=== PATIENT | female | born 1970 | race Caucasian/White ===

== ENCOUNTER → 2019-11-27 | Outpatient (CLI) | payer OTHER, SELFPAY | PROVIDERS: Family Provider Family Medicine; Visit Provider Podiatrist Foot & Ankle Surgery | DX: M76.829 Posterior tibial tendinitis, unspecified leg (principal) | CPT/HCPCS: L3030 ==

== ENCOUNTER → 2019-12-30 15:49 | Outpatient (BNVA) | payer OTHER, SELFPAY | PROVIDERS: Family Provider Family Medicine; PCP Obstetrics & Gynecology; Visit Provider Nurse Practitioner | DX: J03.80 Acute tonsillitis due to other specified organisms (principal); B96.89 Other specified bacterial agents as the cause of diseases classified elsewhere; Z20.828 Contact with and (suspected) exposure to other viral communicable diseases | CPT/HCPCS: 87081; 87880 ==

== ENCOUNTER 2020-01-09 05:46 | Day surgery (SDC) | payer OTHER, SELFPAY ==
[2020-01-05 11:18] VITALS: BMI 35.2
--- NOTE | 2020-01-05 11:26 | ECG_ITS ---
Measurements Intervals [place] Rate: 64 P: 39 NM: 155 QRS: 37 QRSD: 90 T: 24 QT: 383 QTc: 397 SINUS RHYTHM No previous ECG available for comparison Electronically Signed On 01-05-2020 22:18:59 ENVIRONMENTAL REMEDIATION SPECIALIST by Julian Khan M.D. [email or web address]
[2020-01-05 11:54] LABS: Basophils # 0.1 10^3/uL (0.0-0.1); Basophils % 1.1 %; Eosinophils # 0.2 10^3/uL (0.0-0.8); Hematocrit 42.3 % (37.0-47.0); Hemoglobin 13.9 g/dL (11.5-15.3); Lymphocytes # 2.8 10^3/uL (0.8-4.8); Lymphocytes % 26.8 %; Mean Corpuscular HGB Conc 32.9 g/dL (30.0-36.0); Mean Corpuscular Volume 88.1 fL (81-99); Mean Platelet Volume 10.2 fL (7.4-10.4); Monocytes # 0.8 10^3/uL (0.2-0.9); Monocytes % 7.4 %; Neutrophils # 6.5 10^3/uL (1.8-7.7); Neutrophils % 62.2 %; Nucleated Red Blood Cells % 0 %; Platelet Count 348 10^3/cmm (130-400); Red Cell Distribution Width 12.6 % (12.1-15.1); White Blood Count 10.4 10^3/uL (4.0-10.0)
--- NOTE | 2020-01-05 11:54 | ANES.PREANE2 ---
Pre-Anesthetic Assessment Pre-Anesthetic Assessment: Height/Weight: Height 1.7 m Weight 102.058 kg Preop Diagnosis: Intermenstrual bleeding Proposed Procedure: Operation Date: 01/09/20 07:00 Proposed Procedures p Hysteroscopy [id number] N92.3(Not Applicable) - Jose Molina MD s Dilation And Curettage (D&C) paracervical block(Not Applicable) - Jose Molina MD Exam: Pre-Anes Outpt Exam: alert, oriented x 3, clear to auscultation bilaterally and regular rate & rhythm Airway: Submandibular: WNL Cervical ROM: WNL MP: 1 Pulmonary: Pulmonary: Asthma Comments: last required inhaler 2 weeks ago CV/HEM: CV/HEM: HTN Comments: rx'd x 2y : Comments: stones in her 30's GI: GI: GERD Neuropsych: Neuropsych: [place] Comments: hx migranes, last 3 months ago Anesthetic Plan: ASA status: 2 Anesthesia: General PFSH Anesthesia PFSH: Medical History (Updated 01/05/20 @ 11:17 by Salome Truong) Contraception management (Acute) History of kidney stones (Acute) Migraine headache without aura (Acute) Obesity (Acute) Family History (Updated 12/26/19 @ 19:52 by Jose Molina MD) Mother Thyroid disease Hypercholesteremia Hypertension Diabetes Stroke Father Hypercholesteremia Diabetes CAD (coronary artery disease) Social History (Updated 12/30/19 @ 15:50 by Fadumo Cole LPN) Smoking and tobacco status: never smoked Alcohol intake: current Alcohol intake frequency: holidays/special occasions only Female Reproductive History: Date of last menstrual period: 12/20/19 Data Anesthesia Cardiac Studies: No Data to Display
[2020-01-09 06:00] VITALS: BP 128/75; PULSE 71; RESP 18; TEMP 36.7; O2SAT 98
[2020-01-09] MEDS: ketorolac 30 mg/mL INJ IVP (06:22)
[2020-01-09] MEDS: sodium chloride 0.9% 1,000 ML 30 ML IV (06:22)
[2020-01-09 06:30] LABS: OR HCG Qualitative Urine Negative (Negative)
--- NOTE | 2020-01-09 06:37 | PM.HPUD ---
H&P update H&P Update: DATE OF SURGERY/PROCEDURE: 01/09/20 DATE H&P PERFORMED: 12/22/19 H&P UPDATE INFORMATION: H&P completed within last 30 days, No changes to prior documentation and H&P is in [facility] EMR on date indicated PREOP DIAGNOSIS: Intermenstrual bleeding PLANNED PROCEDURE: Operation Date: 01/09/20 07:00 Proposed Procedures p Hysteroscopy [id number] N92.3(Not Applicable) - Jose Molina MD s Dilation And Curettage (D&C) paracervical block(Not Applicable) - Jose Molina MD Full H&P Medications/Allergies: Current Medications: Current Medications Generic Name Dose Route Start Last Admin Trade Name Freq PRN Reason Stop Dose Admin Sodium Chloride 1,000 mls @ 30 ml s/hr 01/09/20 06:00 01/09/20 06:22 Sodium Chloride 0.9% IV 01/10/20 05:59 30 mls/hr .Q24H JESSE Administration Perinent History: Medical/Surgical History: Medical History (Updated 12/30/19 @ 16:30 by MARY Carlson) Contraception management (Acute) History of kidney stones (Acute) Migraine headache without aura (Acute) Obesity (Acute) Family History: Family History (Updated 12/26/19 @ 19:52 by Jose Molina MD) Mother Thyroid disease Hypercholesteremia Hypertension Diabetes Stroke Father Hypercholesteremia Diabetes CAD (coronary artery disease) Social History: Social History Smoking and tobacco status: never smoked Alcohol intake: current Alcohol intake frequency: holidays/special occasions only
--- NOTE | 2020-01-09 07:32 | P.OP_ITS ---
Operative Report Date of procedure: January 09, 2020 Pre-op Diagnosis: Intermenstrual bleeding Post-op Diagnosis: Intermenstrual bleeding Procedure Done: Hysteroscopy with D&C, Paracervical block Specimens removed/disposition: Endometrial curettings Surgeon: Jose Molina Anesthesia: MAC and Other (Paracervical block) Estimated blood loss (mL): 5 IV fluids (mL): 600 Complications: None Brief History: Patient is a 49-year-old white female 3, para 2-0-1-2 with an LMP of 12/19/2019 who is currently on OCPs for control. She had initially presented to [facility] for evaluation due to intermenstrual bleeding on OCPs. She had had a similar problem years ago and was treated with D&C which corrected the problem. Current intermenstrual bleeding started approximately April 2019. It starts approximately 1 to 1-1/2 weeks prior to the onset of the period. Exam in the office had not revealed any potential cause for the bleeding. Hysteroscopy was recommended to evaluate for possible polyps as a cause for her bleeding. Questions were answered and she wished to proceed with hysteroscopy with D&C under sedation. Procedure: The patient was taken to the operating room where IV sedation was started. She was prepped and draped in the usual sterile fashion in the dorsal supine position with legs in John style stirrups. Sequential compression boots had been placed prior to starting the case. Patient had voided just before coming to the operating room. Exam under anesthesia was performed and the patient was noted to have second- degree uterine prolapse and a second- third degree cystocele. Uterus was slightly retroflexed. A weighted speculum was placed in the vagina and the cervix was grasped with a single-tooth tenaculum. A paracervical block was performed with a total of 12 mL of 2% lidocaine with epinephrine used. The cervix was serially dilated until a operative hysteroscope could be passed. Crystalloid solution was used as a distention media. The endometrial cavity was inspected and appeared normal. No polyps or submucosal fibroids noted. Sharp curettage was performed until there was a gritty texture throughout the endometrial cavity. The tenaculum was removed and there was minimal bleeding from the tenaculum site. Patient tolerated the procedure well. Sponge and needle counts were correct. DRAINS: None FINDINGS: Second-degree uterine prolapse with a second to third-degree cystocele. Normal-appearing endometrial cavity with no polyps or submucosal f ibroids noted. POSTOPERATIVE STATUS: The patient was transferred to the recovery room in satisfactory condition DISPOSITION: Discharge to home when criteria was met. FOLLOWUP APPOINTMENT: Followup appointment had been scheduled on 01/29/2020 in my office. MEDICATIONS: Prescriptions for: Tramadol 50 mg, 1 to 2 tablets every 6 hours as needed for pain, #10, 0 refills Resume usual home medications.
[2020-01-09 07:37] VITALS: BP 129/72; PULSE 75; RESP 18; TEMP 36.6; O2SAT 97
[2020-01-09 08:07] VITALS: BP 101/48; PULSE 67; RESP 18; TEMP 36.6; O2SAT 97
== END 2020-01-09 08:25 | disposition home or self-care (01) ==
PROVIDERS: Family Provider Family Medicine; PCP Obstetrics & Gynecology; Visit Provider Obstetrics & Gynecology
PROC: 0UJD8ZZ Inspection of Uterus and Cervix, Via Natural or Artificial Opening Endoscopic (ICD-10-PCS; CPT 58555; principal; 2020-01-09 07:00)
PROC: (CPT 58120; 2020-01-09 07:00)
DX: N92.3 Ovulation bleeding (principal); E66.9 Obesity, unspecified; Z68.35 Body mass index [BMI] 35.0-35.9, adult; Z82.49 Family history of ischemic heart disease and other diseases of the circulatory system; Z83.3 Family history of diabetes mellitus
CPT/HCPCS: 58558; 12345; 84703; 85025; 88305; 93005; 96374; J1885; J2001; J2405; J2704; J3010; J7030

== ENCOUNTER → 2020-01-29 08:26 | Outpatient (BNVA) | payer OTHER, SELFPAY | PROVIDERS: Family Provider Family Medicine; PCP Obstetrics & Gynecology; Visit Provider Obstetrics & Gynecology | DX: R30.0 Dysuria (principal); N92.3 Ovulation bleeding; Z48.816 Encounter for surgical aftercare following surgery on the genitourinary system | CPT/HCPCS: 81003; 87086 ==

== ENCOUNTER → 2020-02-23 15:44 | Outpatient (BNVA) | payer OTHER, SELFPAY | PROVIDERS: Family Provider Family Medicine; PCP Obstetrics & Gynecology; Visit Provider Nurse Practitioner Women's Health | DX: R35.0 Frequency of micturition (principal); N76.0 Acute vaginitis; B96.89 Other specified bacterial agents as the cause of diseases classified elsewhere | CPT/HCPCS: 80053; 81000; 87210 ==

== ENCOUNTER → 2020-03-20 14:56 | Outpatient (BNVA) | payer OTHER, SELFPAY | PROVIDERS: Family Provider Family Medicine; PCP Obstetrics & Gynecology; Visit Provider Obstetrics & Gynecology | DX: R35.0 Frequency of micturition (principal) | CPT/HCPCS: 81000 ==

== ENCOUNTER → 2020-03-21 10:33 | Outpatient (BNVA) | payer OTHER, SELFPAY | PROVIDERS: Family Provider Family Medicine; PCP Obstetrics & Gynecology; Visit Provider Podiatrist Foot & Ankle Surgery | DX: M21.42 Flat foot [pes planus] (acquired), left foot (principal); M76.822 Posterior tibial tendinitis, left leg | CPT/HCPCS: 73630 ==

== ENCOUNTER → 2020-03-25 15:09 | Outpatient (BNVA) | payer OTHER, SELFPAY | PROVIDERS: Family Provider Family Medicine; PCP Obstetrics & Gynecology; Visit Provider Obstetrics & Gynecology | DX: R35.0 Frequency of micturition (principal) | CPT/HCPCS: 80053 ==

== ENCOUNTER → 2020-06-06 11:50 | Outpatient (BNVA) | payer OTHER, SELFPAY | PROVIDERS: Family Provider Family Medicine; PCP Obstetrics & Gynecology; Referring Provider Family Medicine; Visit Provider Nurse Practitioner Family | DX: N39.0 Urinary tract infection, site not specified (principal); R35.0 Frequency of micturition | CPT/HCPCS: 80053; 81001 ==

== ENCOUNTER → 2020-07-10 15:44 | Outpatient (BNVA) | payer OTHER, SELFPAY | PROVIDERS: Family Provider Family Medicine; PCP Obstetrics & Gynecology; Visit Provider Nurse Practitioner Women's Health | DX: Z30.430 Encounter for insertion of intrauterine contraceptive device (principal); N94.5 Secondary dysmenorrhea; Z86.19 Personal history of other infectious and parasitic diseases; Z30.9 Encounter for contraceptive management, unspecified | CPT/HCPCS: 81025 ==

== ENCOUNTER 2020-07-29 09:25 | Outpatient (CLI) | payer OTHER, SELFPAY ==
--- NOTE | 2020-07-29 08:30 | XRR_ITS ---
PROCEDURE INFORMATION: Exam: XR Abdomen, 1 View Exam date and time: 07/29/2020 9:39 AM Age: 50 years old Clinical indication: Condition or disease; Other: Stones; Prior surgery; Surgery type: Gb TECHNIQUE: Imaging protocol: XR of the abdomen. Views: Frontal supine view of the abdomen. 1 View. COMPARISON: ES surgery / GI images 01/09/2020 4:40 AM FINDINGS: Gastrointestinal tract: Bowel gas pattern is nonspecific. No mass effect upon the bowel loops. Distal rectal gas. Scattered loops of air filled small bowel none of which are dilated. Organs: intrauterine device . Surgical clips are present in the region of the gallbladder fossa. Bones/joints: No acute process within the osseous structures of the spine or pelvis. Soft tissues: No appreciable calcifications XR/XR KUB [id number] IMPRESSION: Bowel gas pattern is nonspecific.
== END 2020-07-29 09:26 | disposition home or self-care (01) ==
LOC: RAD 09:28
PROVIDERS: PCP Family Medicine; Visit Provider Urology
DX: N20.9 Urinary calculus, unspecified (principal)
CPT/HCPCS: 74018; 81001

== ENCOUNTER 2020-08-21 07:28 | Outpatient (CLI) | payer OTHER, SELFPAY ==
--- NOTE | 2020-08-21 07:30 | XRR_ITS ---
PROCEDURE INFORMATION: Exam: XR Abdomen, 1 View Exam date and time: 08/21/2020 7:32 AM Age: 50 years old Clinical indication: Right flank pain; Prior surgery; Surgery type: Gb TECHNIQUE: Imaging protocol: XR of the abdomen. Views: Frontal supine view of the abdomen. 1 View. COMPARISON: CR XR KUB [id number] 07/29/2020 9:33 AM FINDINGS: Gastrointestinal tract: No dilated gas-filled loops of bowel. Organs: There is an intrauterine device present. No radiopaque renal or ureteral calculi. Vasculature: Multiple phleboliths in the pelvis bilaterally. Bones/joints: No acute osseous abnormality. XR/XR KUB [id number] IMPRESSION: No acute abnormality.
== END 2020-08-21 07:29 | disposition home or self-care (01) ==
LOC: RAD 07:31
PROVIDERS: PCP Family Medicine; Visit Provider Urology
DX: R10.9 Unspecified abdominal pain (principal)
CPT/HCPCS: 74018; 81001

== ENCOUNTER → 2020-10-21 12:04 | Outpatient (BNVA) | payer OTHER, SELFPAY | PROVIDERS: Visit Provider Family Medicine | DX: Z20.828 Contact with and (suspected) exposure to other viral communicable diseases (principal) | CPT/HCPCS: 87635 ==

== ENCOUNTER → 2020-11-20 08:31 | Outpatient (BNVA) | payer OTHER, SELFPAY | PROVIDERS: PCP Family Medicine; Visit Provider Urology | DX: N39.0 Urinary tract infection, site not specified (principal); N20.1 Calculus of ureter; R39.198 Other difficulties with micturition | CPT/HCPCS: 81003; 87077; 87086; 87184 ==

== ENCOUNTER → 2021-03-03 09:37 | Outpatient (BNVA) | payer OTHER, SELFPAY | PROVIDERS: PCP Family Medicine; Visit Provider Urology | DX: N39.0 Urinary tract infection, site not specified (principal); R39.11 Hesitancy of micturition | CPT/HCPCS: 81003 ==

== ENCOUNTER → 2021-05-27 17:58 | Outpatient (BNVA) | payer OTHER, SELFPAY | PROVIDERS: PCP Family Medicine; Visit Provider Registered Nurse Neonatal Intensive Care | DX: S99.911A Unspecified injury of right ankle, initial encounter (principal); W17.2XXA Fall into hole, initial encounter | CPT/HCPCS: 73610 ==

== ENCOUNTER → 2021-06-18 09:40 | Outpatient (BNVA) | payer OTHER, SELFPAY | PROVIDERS: PCP Family Medicine; Visit Provider Urology | DX: N30.80 Other cystitis without hematuria (principal) | CPT/HCPCS: 81003; 87077; 87086; 87184 ==

== ENCOUNTER 2021-07-01 08:26 | Outpatient (CLI) | payer OTHER, SELFPAY ==
--- NOTE | 2021-07-01 08:30 | MM_ITS ---
WS: [id number] Bilateral screening digital mammogram, 07/01/2021 Clinical Data: SCREENING Comparison: 09/18/2019, 04/27/2018, 04/13/2016, 04/05/2015, 05/04/2013. Findings: The breast parenchymal pattern shows fibroglandular tissue No spiculated masses or clustered calcific ations are seen. There are no secondary signs of carcinoma. MM/[place] [id number] Impression: 1. Negative bilateral mammogram unchanged. 2. Recommend annual screening mammograms. BIRADS: 1-Negative FOLLOW UP: 1 Year Follow-up The CAD load checker was used.
== END 2021-07-01 08:27 | disposition home or self-care (01) ==
LOC: RADSHAW 08:29
PROVIDERS: PCP Family Medicine; Visit Provider Nurse Practitioner Women's Health
DX: Z12.31 Encounter for screening mammogram for malignant neoplasm of breast (principal)
CPT/HCPCS: 77067

== ENCOUNTER → 2021-07-03 09:09 | Outpatient (BNVA) | payer OTHER, SELFPAY | PROVIDERS: PCP Family Medicine; Visit Provider Nurse Practitioner Family | DX: N39.0 Urinary tract infection, site not specified (principal) | CPT/HCPCS: 81003 ==

== ENCOUNTER → 2021-08-06 14:02 | Outpatient (BNVA) | payer OTHER, SELFPAY | PROVIDERS: PCP Family Medicine; Visit Provider Urology | DX: N39.0 Urinary tract infection, site not specified (principal) | CPT/HCPCS: 81003; 87077; 87086; 87184 ==

== ENCOUNTER → 2022-01-08 13:57 | Outpatient (BNVA) | payer OTHER, SELFPAY | PROVIDERS: PCP Family Medicine; Visit Provider Urology | DX: N30.20 Other chronic cystitis without hematuria (principal) | CPT/HCPCS: 81003 ==

== ENCOUNTER → 2022-04-21 14:05 | Outpatient (BNVA) | payer BC, SELFPAY | PROVIDERS: PCP Family Medicine; Visit Provider Podiatrist Foot & Ankle Surgery | DX: M79.672 Pain in left foot (principal); R35.0 Frequency of micturition; N30.20 Other chronic cystitis without hematuria | CPT/HCPCS: 73630; 85651; 86140; 86160; 86162; 86235; 86255; 86376; 86431 ==

== ENCOUNTER 2022-07-24 05:49 | Day surgery (SDC) | payer BC, SELFPAY ==
[2022-07-23 12:07] VITALS: BMI 41.3
--- NOTE | 2022-07-24 06:12 | W.PM.OPSUD ---
Surgery/Procedure H&P Update DATE OF PROCEDURE: July 24, 2022 DATE H&P PERFORMED: 07/22/22 H&P UPDATE INFORMATION: I have reviewed H&P completed within last 30 days, I have examined patient prior to procedure and No changes to prior documentation PREOP DIAGNOSIS: Acid reflux and screening colonoscopy PRIMARY INDICATION FOR PROCEDURE: The same PLANNED PROCEDURE: Operation Date: 07/24/22 07:00 Proposed Procedures p EGD and colonoscopy [id number].K21.9,Z12.11(Not Applicable) - Jan Welch MD s Colonoscopy(Not Applicable) - Jan Welch MD
[2022-07-24 06:16] VITALS: BP 129/91; PULSE 91; RESP 18; TEMP 36.1; O2SAT 97
[2022-07-24] MEDS: sodium chloride 0.9% 1,000 ML 30 ML IV (06:28)
[2022-07-24 06:32] LABS: OR HCG Qualitative Urine Negative (Negative)
[2022-07-24 07:24] VITALS: BP 114/69; PULSE 97; RESP 16; TEMP 36.8; O2SAT 94
[2022-07-24 07:29] VITALS: BP 107/75; PULSE 93; RESP 18; O2SAT 94
--- NOTE | 2022-07-24 07:32 | ANES.PREANE2 ---
Pre-Anesthetic Assessment Height/Weight: Height 1.7 m Weight 119.748 kg Temp Pulse Resp BP Pulse Ox O2 Del Method 98.2 F 97 16 114/69 94 07/24/22 07:24 07/24/22 07:24 07/24/22 07:24 07/24/22 07:24 07/24/22 07:24 07/24/22 07:24 Preop Diagnosis: Acid reflux and screening colonoscopy Operation Date: 07/24/22 07:00 Proposed Procedures p EGD and colonoscopy [id number],69039.K21.9,Z12.11(Not Applicable) - Jan Welch MD s Colonoscopy(Not Applicable) - Jan Welch MD Was Beta Kary taken within 24 hours: Yes Was Clonidine taken within 24 hours: N/A Last intake: Intake Last Liquid Date 07/23/22 Last Liquid Time 21:00 Last Solid Date 07/22/22 Last Solid Time 20:00 Social No alcohol and No tobacco Exam alert, oriented x 3, clear to auscultation bilaterally and regular rate & rhythm Airway Submandibular: within normal limits Cervical ROM: within normal limits Mallampati: Class II Pulmonary Asthma and Sleep Apnea undiagnosed, suspected CV/HEM Hypertension and Murmur mitral regurg, tachhycardia None reported Hepatic None reported GI Gastroesophageal Reflux Disease Metabolic Morbid Obesity [facility] None reported Neuropsych Depression Anesthetic Plan ASA status: 3 Anesthesia: Anesthesia Evaluation and MAC Risk of > 500 ml blood loss (7ml/kg in children): Yes, adequate IV access and fluids planned Medications/Allergies Home Medications Medication Instructions Recorded Confirmed Last Taken Type multivitamin,za-lcyb-ojgbrlqx 1 tab PO QDAY 12/22/19 07/24/22 07/23/22 History (Complete Multivitamin) loratadine 10 mg tablet (Allergy 10 mg PO DAILY 06/06/20 07/24/22 07/23/22 History Relief (loratadine)) magnesium oxide 400 mg PO DAILY 06/06/20 07/24/22 07/23/22 History metaxalone 800 mg tablet (Skelaxin) 800 mg PO TID PRN Spasms 07/03/21 07/24/22 Unknown History duloxetine 30 mg capsule,delayed 30 mg PO BID 07/23/21 07/24/22 07/23/22 History release (Cymbalta) metoprolol tartrate 25 mg tablet 25 mg PO BID 07/23/21 07/24/22 07/24/22 History nystatin 100,000 unit/gram topical 1 applic topical TID PRN skin 07/23/21 07/24/22 07/23/22 Rx cream yeast #30 grams cholecalciferol (vitamin D3) 50 50 mcg PO DAILY 07/23/22 07/24/22 07/23/22 History mcg (2,000 unit) capsule (Vitamin D3) fluocinolone acetonide oil 0.01 % 3 drp otic (ear) BID PRN Outbreak 07/23/22 07/24/22 07/23/22 History ear drops montelukast 10 mg tablet 10 mg PO DAILY PRN Allergy Symptoms 07/23/22 07/24/22 Unknown History ondansetron HCl 4 mg tablet 4 mg PO Q6H PRN nausea and 07/23/22 07/24/22 07/23/22 Rx vomiting 30 days #120 tabs triamcinolone acetonide 55 mcg 2 spray intranasal DAILY PRN 07/23/22 07/24/22 07/23/22 History nasal spray aerosol (Nasacort) Allergy Symptoms pantoprazole 40 mg tablet,delayed 40 mg PO DAILY 30 days #30 tabs 07/24/22 Unknown Rx release (Protonix) Allergies Allergy/AdvReac Type Severity Reaction Status Date / Time ketoprofen Allergy Severe ADR-Vomitin Verified 07/22/22 09:31 g Sulfa (Sulfonamide Allergy Intermediate ADR-Fatigue Verified 07/22/22 09:31 Antibiotics) d Current Medications Generic Name Dose Route Start Last Admin Trade Name Freq PRN Reason Stop Dose Admin Sodium Chloride 1,000 mls @ 30 mls/hr 07/24/22 06:00 07/24/22 06:28 Sodium Chloride 0.9% IV 30 mls/hr .Q24H JESSE Administration PFSH Anesthesia Medical History Chronic cystitis H/O herpes genitalis History of kidney stones Migraine headache without aura Mitral valve disorder No pertinent past medical history neghx: dm,thyroid,dvt/pe PCP: Dr. Celestino James PAT (paroxysmal atrial tachycardia) Recurrent UTI Urinary hesitancy Surgical History History of cholecystectomy (08/16/17) Laparoscopic. Performed by Dr. Welch at [facility] in [place], [place]. History of hysteroscopy (~06/2006) With spots burned from cervix per patient History of hysteroscopy (01/09/20) With D&C. Dx: Intermenstrual bleeding. Performed by Dr. Molina at [facility]. No abnormalities found. Family History Mother Thyroid disease Hypercholesteremia Hypertension Diabetes Stroke Father Hypercholesteremia Diabetes CAD (coronary artery disease) Family/Other Colon cancer Maternal Aunt--dx age 60's Denies family history of Ovarian cancer Breast cancer Uterine cancer Social History Smoking and tobacco status: never smoked Alcohol intake: never Marital status: Current occupational status: employed History of recent travel: No Female Reproductive History Date of last menstrual period: 12/20/19 Data Anesthesia Cardiac Studies: No Data to Display
[2022-07-24 07:39] VITALS: BP 115/70; PULSE 89; RESP 18; O2SAT 96
--- NOTE | 2022-07-24 08:51 | ANE.PACU2 ---
Inpatient post-anesthesia follow up: Airway intact: Yes Vital signs: Temperature 98.2 F Pulse Rate 89 Respiratory Rate 18 Blood Pressure 115/70 Pulse Oximetry 96 Oxygen Delivery Me thod Room Air Oxygen Flow Rate Fraction of Inspir ed Oxygen Hydration adequate: Yes Nausea and vomiting: No Pain level: 1 Mental status: Baseline
== END 2022-07-24 08:00 | disposition home or self-care (01) ==
PROVIDERS: Anesthesiology; PCP Family Medicine; Visit Provider Surgery
PROC: 0DJ08ZZ Inspection of Upper Intestinal Tract, Via Natural or Artificial Opening Endoscopic (ICD-10-PCS; CPT 43235; principal; 2022-07-24 07:00)
PROC: 0DJD8ZZ Inspection of Lower Intestinal Tract, Via Natural or Artificial Opening Endoscopic (ICD-10-PCS; CPT 45378; 2022-07-24 07:00)
DX: Z12.11 Encounter for screening for malignant neoplasm of colon (principal); K63.5 Polyp of colon; K57.30 Diverticulosis of large intestine without perforation or abscess without bleeding; K29.50 Unspecified chronic gastritis without bleeding; K21.9 Gastro-esophageal reflux disease without esophagitis; I10 Essential (primary) hypertension; J45.909 Unspecified asthma, uncomplicated; G47.30 Sleep apnea, unspecified; I34.0 Nonrheumatic mitral (valve) insufficiency; E66.01 Morbid (severe) obesity due to excess calories; Z68.41 Body mass index [BMI] 40.0-44.9, adult; Z88.2 Allergy status to sulfonamides; Z80.0 Family history of malignant neoplasm of digestive organs
CPT/HCPCS: 43239; 45385; 84703; 88305; J2704; J7030

== ENCOUNTER 2022-07-29 09:05 | Outpatient (CLI) | payer BC, SELFPAY ==
--- NOTE | 2022-07-29 09:14 | MM_ITS ---
WS: [id number] VIEWS: MLO and CC views both breasts. 3D digital tomosynthesis is also included in this exam. Comparison made with prior exam of 05/04/2013, 04/05/2015, 04/13/2016, 09/18/2019, 07/01/2021.. Findings: There was no sign of mass, architectural distortion or suspicious calcification in either breast. Sc attered fibroglandular densities MM/[place] [id number] Impression: BI-RADS: 2-Benign FOLLOW-UP: 1 Year Follow-up This mammogram was also analyzed by the Computer Aided Detection System R2 Imag e Municipal Services Manager.
== END 2022-07-29 09:06 | disposition home or self-care (01) ==
PROVIDERS: PCP Family Medicine; Visit Provider Family Medicine
DX: Z12.31 Encounter for screening mammogram for malignant neoplasm of breast (principal); R30.0 Dysuria; R10.31 Right lower quadrant pain
CPT/HCPCS: 77063; 77067; 81000; 85025; 87077; 87086; 87184

== ENCOUNTER → 2022-08-04 12:50 | Outpatient (BNVA) | payer BC, SELFPAY | PROVIDERS: PCP Family Medicine; Visit Provider Nurse Practitioner Women's Health | DX: R10.31 Right lower quadrant pain (principal) | CPT/HCPCS: 76830 ==

== ENCOUNTER 2022-11-18 13:30 | Outpatient (CLI) | payer BC, SELFPAY | END 2022-11-18 13:31 | disposition home or self-care (01) | LOC: SLEEP 11-24 13:56 | PROVIDERS: PCP Family Medicine; Visit Provider Family Medicine | DX: G47.33 Obstructive sleep apnea (adult) (pediatric) (principal) | CPT/HCPCS: G0399 ==

== ENCOUNTER 2023-02-23 05:51 | Outpatient (CLI) | payer OTHER, SELFPAY ==
--- NOTE | 2023-02-23 06:12 | US_ITS ---
WS: [id number] RIGHT UPPER QUADRANT ULTRASOUND HISTORY: RUQ PAIN COMPARISON: None available. Liver: 19.2 cm in length. Very mild coarsened echotexture throughout the liver. Surface of the liver is very slightly nodular and irregular. No mass identified. No bile duct dilatation. Portal Vein: Normal hepatopetal flow with monophasic waveform. Gallbladder: Status post cholecystectomy. CBD: 0.4 cm Pancreas: Normal size and echogenicity. Right kidney: 9.9 cm in length. Normal size and echogenicity. No hydronephrosis or mass. Aorta and IVC: Unremarkable abdominal aorta and IVC. No ascites. US/US abdomen limited [id number] IMPRESSION: 1. Prior cholecystectomy. 2. Mild hepatomegaly and hepatic steatosis.
== END 2023-02-23 05:52 | disposition home or self-care (01) ==
LOC: RAD 05:53
PROVIDERS: PCP Family Medicine; Visit Provider Physician Assistant
DX: R10.11 Right upper quadrant pain (principal); Z90.49 Acquired absence of other specified parts of digestive tract; R16.0 Hepatomegaly, not elsewhere classified; K76.0 Fatty (change of) liver, not elsewhere classified
CPT/HCPCS: 76705; 81003

== ENCOUNTER → 2023-04-21 15:45 | Outpatient (BNVA) | payer BC, SELFPAY | PROVIDERS: PCP Family Medicine; Visit Provider Family Medicine | DX: L98.0 Pyogenic granuloma (principal) | CPT/HCPCS: 88304 ==

== ENCOUNTER 2023-06-20 20:11 | Emergency (ER) | payer BC, SELFPAY ==
[2023-06-20 20:16] VITALS: BP 121/86; PULSE 84; RESP 14; TEMP 36.7; O2SAT 99; BMI 38.5
[2023-06-20 20:58] LABS: Basophils # 0.1 10^3/uL (0.0-0.1); Basophils % 0.8 %; Eosinophils # 0.5 10^3/uL (0.0-0.8); Eosinophils % 2.9 %; Hemoglobin 14.7 g/dL (11.5-15.3); Lymphocytes # 2.3 10^3/uL (0.8-4.8); Lymphocytes % 15.3 %; Mean Corpuscular HGB Conc 32.7 g/dL (30.0-36.0); Mean Corpuscular Hemoglobin 28.7 pg (28.0-34.0); Mean Corpuscular Volume 87.9 fl (81-99); Monocytes % 6.4 %; Neutrophils # 11.32 10^3/uL (1.8-7.7); Neutrophils % 73.9 %; Nucleated Red Blood Cells % 0 %; Platelet Count 379 10^3/cmm (130-400); Red Blood Count 5.12 10^6/uL (4.1-5.3); Red Cell Distribution Width 13.3 % (12.1-15.1); White Blood Count 15.3 10^3/uL (4.0-10.0)
[2023-06-20 21:12] LABS: Alanine Aminotransferase 70 U/L (0-33); Albumin Level 4.1 g/dL (3.5-5.2); Alkaline Phosphatase 90 U/L (35-105); Anion Gap 14.6 (5-19); Aspartate Amino Transferase 45 U/L (0-32); Blood Urea Nitrogen 10 mg/dL (6-20); Calcium 9.2 mg/dL (8.5-10.5); Carbon Dioxide 27 mmol/L (22-29); Chloride 99 mmol/L (98-107); Globulin 2.6 g/dL (1.3-4.6); Glomerular Filtration Rate 66.3 mL/min (90-130); Glucose 144 mg/dL (65-115); Lipase 53 U/L (13-60); Osmolality Calculated 284 mOsm/kg (285-295); Potassium 4.6 mmol/L (3.5-5.1); Sodium 136 mmol/L (136-145); Total Bilirubin 0.3 mg/dL (0.15-1.2); Total Protein 6.7 g/dL (6.6-8.7)
--- NOTE | 2023-06-20 22:13 | ED_ITS ---
HPI - Abdominal Pain General: Chief Complaint: Abdominal Pain Stated Complaint: vomiting Time Seen by Provider: 06/20/23 21:23 Source: patient Mode of arrival: ambulatory Limitations: no limitations History of Present Illness: 52-year-old female states that over the last week or 2 she been having a lot of belching and nausea diarrhea and feeling fatigued states today she has not felt well said increased nausea and diarrhea states has had some paresthesias as well mild headache denies any fevers. No focal deficits Associated Symptoms: Reports diarrhea, nausea and vomiting; Denies chills, dysuria and fever(s) Review of Systems Const: Reports: fatigue and malaise; Denies: fever(s), chills, body aches or change in appetite Eyes: Denies: blurry vision or eye discomfort ENMT: Denies: throat pain or dental pain Card: Denies: chest pain Resp: Denies: dyspnea GI: Reports: abdominal pain, nausea, vomiting and diarrhea : Denies: dysuria Musc: Denies: neck pain or back pain Skin/Breast: Denies: rash Neuro: Denies: headache(s) Psych: Denies: depression PFSH ED PFSH: Medical History Chronic cystitis H/O herpes genitalis History of kidney stones Hypertension Migraine headache without aura Mitral valve disorder No pertinent past medical history neghx: dm,thyroid,dvt/pe PCP: Dr. Celestino James PAT (paroxysmal atrial tachycardia) Recurrent UTI Surgical History History of cholecystectomy (08/16/17) Laparoscopic. Performed by Dr. Welch at [facility] in [place], [place]. History of hysteroscopy (~06/2006) With spots burned from cervix per patient History of hysteroscopy (01/09/20) With D&C. Dx: Intermenstrual bleeding. Performed by Dr. Molina at [facility] [place]. No abnormalities found. Hx of colonoscopy (~07/24/22) Hx of endoscopy (~07/24/22) Family History Mother Thyroid disease Hypercholesteremia Hypertension Diabetes Stroke Father Hypercholesteremia Diabetes Family/Other Colon cancer Maternal Aunt--dx age 60's Cancer Paternal aunt-skin Grandfather Cancer Paternal-stomach Other Anesthesia complication Clotting disorder Dementia Lung disease Denies family history of CAD (coronary artery disease) Psychiatric illness Chronic kidney disease (CKD) Bleeding disorder Social History Smoking and tobacco status: never smoked Alcohol intake: current Alcohol intake frequency: holidays/special occasions only Substance/Drug Use: never Lives independently: Yes Marital status: Number of children: 2 Current occupational status: employed 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,[id number] Special marc needs: No Agree to transfusion: Yes Physical Exam Const: COMMON NORMALS: no acute distress, patient oriented x3 and healthy appearing HENMT: COMMON NORMALS: normocephalic and atraumatic HEAD & SCALP: normocephalic and atraumatic Eye: COMMON NORMALS: Equal, round and reactive pupils present and EOMs intact bilaterally PUPIL: Yes Equal, round and reactive pupils present Neck/C-Spine: COMMON NORMALS: full ROM and supple Chest: COMMONS NORMALS: normal inspection of the chest and normal palpation of entire chest wall Resp: COMMON NORMALS: normal respiratory effort, No retractions, No use of accessory muscles and clear to auscultation bilaterally AUSCULTATION: clear to auscultation bilaterally Cardio: COMMON NORMALS: regular rate, regular rhythm and No murmurs present (Cardio) RATE: regular rate RHYTHM: regular rhythm GI: COMMON NORMALS: Normal to inspection, nondistended, normoactive bowel sounds present, Soft to palpation, non-tender and no masses PALPATION: Yes Soft to palpation Extremity: COMMON NORMALS: normal to inspection and full ROM Neuro: COMMON NORMALS: patient oriented x3, moves all extremities and no focal motor deficits Psych: COMMON NORMALS: mental status grossly normal, Normal thought process present and cooperative THOUGHT PROCESS: Normal thought process present Skin: COMMON NORMALS: no rashes or lesions noted and no wounds GENERAL SKIN EXAM: no rashes or lesions noted Course Vital Signs: Vital signs: Vital Signs Temperature 98.1 F 06/20/23 20:16 Pulse Rate 92 06/21/23 02:09 Respiratory Rate 18 06/21/23 02:09 Blood Pressure 111/73 06/21/23 02:09 Pulse Oximetry 96 06/21/23 02:09 Oxygen Delivery Me thod Room Air 06/21/23 01:30 MDM - Abdominal Pain Medical Decision Making Patient presents with abdominal pain along with nausea and a lot of belching is likely from her Ozempic her CT scan blood work here normal she is stable for discharge she follows with her PCP tomorrow is to prescribe her Ozempic she is to follow-up with surgery well return if worsening Medical Records I reviewed the patient's medical records. Lab Data I reviewed the patient's lab results. 06/20/23 20:52 06/20/23 20:52 Labs/Radiology: Radiology Impressions Abdomen/Pelvis CT 06/20/23 22:42 IMPRESSION: No acute abnormality in the abdomen or pelvis to explain patient's elevated white count with nausea and vomiting. In particular, a normal appendix is confirmed and there is no evidence of bowel obstruction, urolithiasis, or pyelonephritis. Laboratory Results WBC 15.3 10^3/uL (4.0-10.0) H 06/20/23 20:52 RBC 5.12 10^6/uL (4.1-5.3) 06/20/23 20:52 Hgb 14.7 g/dL (11.5-15.3) 06/20/23 20:52 Hct 45.0 % (37.0-47.0) 06/20/23 20:52 MCV 87.9 fl (81-99) 06/20/23 20:52 MCH 28.7 pg (28.0-34.0) 06/20/23 20:52 MCHC 32.7 g/dL (30.0-36.0) 06/20/23 20:52 RDW 13.3 % (12.1-15.1) 06/20/23 20:52 Plt Count 379 10^3/cmm (130-400) 06/20/23 20:52 MPV 10.0 fL (7.4-10.4) 06/20/23 20:52 Neut % (Auto) 73.9 % 06/20/23 20:52 Lymph % (Auto) 15.3 % 06/20/23 20:52 [place] % (Auto) 6.4 % 06/20/23 20:52 Eos % (Auto) 2.9 % 06/20/23 20:52 Baso % (Auto) 0.8 % 06/20/23 20:52 Neut # (Auto) 11.32 10^3/uL (1.8-7.7) H 06/20/23 20:52 Lymph # (Auto) 2.3 10^3/uL (0.8-4.8) 06/20/23 20:52 [place] # (Auto) 1.0 10^3/uL (0.2-0.9) H 06/20/23 20:52 Eos # (Auto) 0.5 10^3/uL (0.0-0.8) 06/20/23 20:52 Baso # (Auto) 0.1 10^3/uL (0.0-0.1) 06/20/23 20:52 Nucleated RBC % (auto) 0 % 06/20/23 20:52 Nucleated RBCs # 0.0 /100WBC 06/20/23 20:52 Sodium 136 mmol/L (136-145) 06/20/23 20:52 Potassium 4.6 mmol/L (3.5-5.1) 06/20/23 20:52 Chloride 99 mmol/L (98-107) 06/20/23 20:52 Carbon Dioxide 27 mmol/L (22-29) 06/20/23 20:52 Anion Gap 14.6 (5-19) 06/20/23 20:52 BUN 10 mg/dL (6-20) 06/20/23 20:52 Creatinine 0.9 mg/dL (0.5-0.9) 06/20/23 20:52 GFR Calculation 66.3 mL/min (90-130) L 06/20/23 20:52 Glucose 144 mg/dL (65-115) H 06/20/23 20:52 Calculated Osmolality 284 mOsm/kg (285-295) L 06/20/23 20:52 Calcium 9.2 mg/dL (8.5-10.5) 06/20/23 20:52 Total Bilirubin 0.3 mg/dL (0.15-1.2) 06/20/23 20:52 AST 45 U/L (0-32) H 06/20/23 20:52 ALT 70 U/L (0-33) H 06/20/23 20:52 Alkaline Phosphatase 90 U/L (35-105) 06/20/23 20:52 Total Protein 6.7 g/dL (6.6-8.7) 06/20/23 20:52 Albumin 4.1 g/dL (3.5-5.2) 06/20/23 20:52 Globulin 2.6 g/dL (1.3-4.6) 06/20/23 20:52 Lipase 53 U/L (13-60) 06/20/23 20:52 Urine Color Yellow (Yellow) 06/20/23 23:55 Urine Appearance Clear (CLEAR) 06/20/23 23:55 Urine pH 8 (5-7) H 06/20/23 23:55 Ur Specific [place] 1.005 (1.005-1.030) 06/20/23 23:55 Urine Protein 1+ (Negative) H 06/20/23 23:55 Urine Glucose (UA) Norm (Normal) 06/20/23 23:55 Urine Ketones Negative (Negative) 06/20/23 23:55 Urine Blood Neg (Negative) 06/20/23 23:55 Urine Nitrate Positive (Negative) H 06/20/23 23:55 Urine Bilirubin Neg (Negative) 06/20/23 23:55 Prot Sulfosalicylic Acd Negative (Negative) 06/20/23 23:55 Urine Urobilinogen Norm mg/dL (Negative) 06/20/23 23:55 Ur Leukocyte Esterase 2+ (Negative) H 06/20/23 23:55 Urine RBC 0-4 /hpf (0-2) H 06/20/23 23:55 Urine WBC 15-25 /hpf (0-5) H 06/20/23 23:55 Ur Squamous Epith Cells 0-4 /hpf (0-5) H 06/20/23 23:55 Amorphous Sediment Not Reportable 06/20/23 23:55 Urine Bacteria Trace /hpf (NONE) 06/20/23 23:55 Discharge Plan Discharge Patient Disposition: Home Clinical Impression: Abdominal pain Condition: Stable Prescriptions: New ondansetron 4 mg tablet,disintegrating 4 mg PO Q6H PRN (Reason: nausea and vomiting) Qty: 14 0RF No Action magnesium oxide 400 mg magnesium capsule 400 mg PO DAILY Complete Multivitamin Tablet 1 tab PO QDAY loratadine [Allergy Relief (loratadine)] 10 mg tablet 10 mg PO DAILY nystatin 100,000 unit/gram cream 1 applic topical TID PRN (Reason: skin yeast) Qty: 30 3RF doxycycline hyclate 100 mg capsule 100 mg PO BID PRN valacyclovir [Valtrex] 1 gram tablet 1,000 mg PO BID PRN albuterol sulfate 90 mcg/actuation HFA aerosol inhaler 2 puff inhalation Q6H PRN Ozempic 0.25 mg or 0.5 mg (2 mg/3 mL) pen injector 0.25 mg SUBCUT .qweekly 90 Days Qty: 3 2RF metformin 500 mg tablet 500 mg PO BID Qty: 180 0RF duloxetine [Cymbalta] 30 mg capsule,delayed release(DR/EC) 30 mg PO BID Qty: 180 1RF pantoprazole [Protonix] 40 mg tablet,delayed release (DR/EC) 40 mg PO BID Qty: 180 1RF lidocaine HCl 20 mg/mL (2 %) solution 5 ml SUBCUT ONCE Qty: 7 0RF lidocaine (PF) 10 mg/mL (1 %) solution 10 mg SUBCUT ONCE Qty: 1 0RF fluoxetine [Prozac] 20 mg capsule 20 mg PO DAILY Qty: 30 1RF estradiol [Estrace] 0.01 % (0.1 mg/gram) cream 1 g vaginal .COMPLEX Qty: 42.5 0RF Rx Instructions: 1 g vaginally three times weekly for 2 weeks, then twice weekly sucralfate 1 gram tablet 1 g PO TID PRN (Reason: stomach pain) Qty: 30 1RF metoprolol tartrate 25 mg tablet 25 mg PO BID Qty: 180 3RF metaxalone 800 mg tablet 800 mg PO TID PRN (Reason: muscle pain) Qty: 40 0RF Hold Instructions: Home Medication placed on hold at Doctor's office triamcinolone acetonide [Nasacort] 55 mcg Aerosol,[place] 2 spray INTRANASAL DAILY PRN (Reason: Allergy Symptoms) Rx Instructions: administer into each nostril montelukast 10 mg tablet 10 mg PO DAILY PRN (Reason: Allergy Symptoms) cholecalciferol (vitamin D3) [Vitamin D3] 50 mcg (2,000 unit) Capsule 50 mcg PO DAILY fluocinolone acetonide oil 0.01 % drops 3 drp otic (ear) BID PRN (Reason: Outbreak) Discharge Orders: Discharge ED (Routine); Ordered 06/21/23 Ordered By: Dustin Wade Referrals: Tommy Polanco DO [Physician] - 1-3 days Juan M Bautista MD [Primary Care Provider] - Discharge Diet: Advance as tolerated Discharge Activity: Resume usual activity Patient Instructions: Abdominal Pain (ED) Coding Level of Care Code ED Computer Technical Specialist for Leslie Foote
[2023-06-20] MEDS: sodium chloride 0.9% 1,000 ML 999 ML IV (22:40)
--- NOTE | 2023-06-20 22:42 | CTR_ITS ---
PROCEDURE INFORMATION: Exam: CT Abdomen And Pelvis With Contrast Exam date and time: 06/20/2023 11:07 PM Age: 52 years old Clinical indication: Abnormal findings; Abnormal lab test; Nausea and vomiting; Prior surgery; Surgery date: 6+ months; Surgery type: Gb; Patient HX: N/v/d with elevated wbc. ; Additional info: Abd pain TECHNIQUE: Imaging protocol: Computed tomography of the abdomen and pelvis with contrast. Radiation optimization: All CT scans at this facility use at least one of these dose optimization techniques: automated exposure control; mA and/or kV adjustment per patient size (includes targeted exams where dose is matched to clinical indication); or iterative reconstruction. Contrast material: OMNI 350; Contrast volume: 100 ml; Contrast route: INTRAVENOUS (IV); REPORTING DATA: Count of CT and Cardiac NM exams in prior 12 months: This patient has received 0 known CTs and 0 known cardiac nuclear medicine studies in the 12 months prior to the current study. COMPARISON: CR XR KUB [id number] 08/21/2020 7:35 AM RADIATION DOSE METRICS: Total DLP (mGy-cm): 1108.98 FINDINGS: Lungs: Clear basilar lung parenchyma. Pleural spaces: No pleural fluid. Heart: Normal heart size. Liver: Homogeneous low attenuation throughout the liver is compatible with fatty infiltration. Liver measures 16.5 cm in length. Gallbladder and bile ducts: Prior cholecystectomy. No biliary tree dilation or high-density retained stones appreciated. Pancreas: Normal. No ductal dilation. Spleen: Spleen measures 11.2 cm in length. Adrenal glands: Normal configuration. Kidneys and ureters: Kidneys enhance symmetrically and demonstrate no evidence of mass, calculus, obstruction, or inflammation. Stomach and bowel: Postprandial stomach. Normal caliber small bowel. Distal colonic diverticulosis without evidence of acute diverticulitis. Appendix: Normal appendix is confirmed. Intraperitoneal space: No free air. No significant fluid collection. Vasculature: Normal caliber arterial structures. Lymph nodes: No enlarged lymph nodes. Urinary bladder: Unremarkable as visualized. Reproductive: Physiologic appearance for age. Bones/joints: No fracture or destructive lesion. Soft tissues: Unremarkable. CT/CT abdomen pelvis w con* [id number] IMPRESSION: No acute abnormality in the abdomen or pelvis to explain patient's elevated white count with nausea and vomiting. In particular, a normal appendix is confirmed and there is no evidence of bowel obstruction, urolithiasis, or pyelonephritis.
[2023-06-20] MEDS: iohexol 350 mg/mL 500 mL Btl (per mL) IV (23:08)
[2023-06-20] MEDS: ondansetron 2 mg/ML SDV 2 mL 4 MG IVP (23:16)
[2023-06-20 23:19] VITALS: RESP 18; O2SAT 97
[2023-06-20] MEDS: morphine 4 mg/mL SDV 1 mL IVP (23:19)
[2023-06-21 00:30] VITALS: BP 123/85; PULSE 78; O2SAT 95
[2023-06-21 00:38] LABS: Glucose Urine UA Norm (Normal); Protein Urine 1+ (Negative); Specific Gravity, Urine 1.005 (1.005-1.030); Urine Appearance Clear (CLEAR); Urine Color Yellow (Yellow); pH Urine 8 (5-7)
[2023-06-21 00:39] LABS: Add Urine Microscopic? YES; Bilirubin Urine Neg (Negative); Blood Urine Neg (Negative); Ketones Urine Negative (Negative); Leukocyte Esterase Urine 2+ (Negative); Nitrate Urine Positive (Negative); Sulfosalicylic Acid Urine Negative (Negative); Urobilinogen Urine Norm (Negative)
[2023-06-21 00:43] LABS: Add Urine Culture? Yes; Bacteria Urine TRACE /hpf; RBC Urine 0-4 /hpf (0-2); Squamous Epithelial Cell Urine 0-4 /hpf (0-5); WBC Urine 15-25 /hpf (0-5)
[2023-06-21] MEDS: cefTRIAXone 1,000 MG in sodium chloride 0.9% (plus) 50 ML 100 MG IV (01:18)
[2023-06-21 01:30] VITALS: BP 118/85; PULSE 82; O2SAT 91
[2023-06-21 02:09] VITALS: BP 111/73; PULSE 92; RESP 18; O2SAT 96
--- NOTE | 2023-06-21 08:50 | DCPLANNER ---
Addendum entered by Anastasia Murrell 07/09/23 10:46: Patient did attend appointment Addendum entered by Anastasia Murrell 06/23/23 15:19: Patient has a follow up appointment scheduled for Wednesday, July 07, 2023 at 3:[address] Polanco at general surgery. Original Note: policy manager had message to schedule a follow up appointment for patient with general surgery. policy manager sent patients information to the front office staff at general surgery. Patients information will be printed and reviewed. Clinic will call patient with appointment information.
== END 2023-06-21 02:13 | disposition home or self-care (01) ==
PROVIDERS: Emergency Provider Emergency Medicine; PCP Family Medicine
DX: R10.9 Unspecified abdominal pain (principal); Z79.84 Long term (current) use of oral hypoglycemic drugs; I10 Essential (primary) hypertension
CPT/HCPCS: 36415; 74177; 80053; 81001; 83690; 85025; 87077; 87086; 87186; 96365; 96375; 99285; J0696; J2270; J2405; J7030; Q9967

== ENCOUNTER → 2023-07-14 08:56 | Outpatient (BNVA) | payer BC, SELFPAY | PROVIDERS: PCP Family Medicine; Visit Provider Family Medicine | DX: R14.0 Abdominal distension (gaseous) (principal); F32.1 Major depressive disorder, single episode, moderate; Z68.41 Body mass index [BMI] 40.0-44.9, adult; G47.00 Insomnia, unspecified; G47.33 Obstructive sleep apnea (adult) (pediatric); R45.4 Irritability and anger; K21.9 Gastro-esophageal reflux disease without esophagitis; R10.9 Unspecified abdominal pain | CPT/HCPCS: 80053; 80061; 81000; 83036; 84439; 84443; 85025 ==

== ENCOUNTER 2023-08-06 11:48 | Outpatient (CLI) | payer BC, SELFPAY ==
--- NOTE | 2023-08-06 11:54 | MM_ITS ---
WS: [id number] BILATERAL 3D TOMOSYNTHESIS DIGITAL SCREENING MAMMOGRAPHY WITH CAD CLINICAL INFORMATION: SCREENING HISTORY: Screening mammogram. No current complaints. COMPARISON: 2021 TECHNIQUE: Bilateral CC and MLO views. FINDINGS: Scattered fibroglandular densities bilaterally. No suspicious focal mass, asymmetry, calcifications, or architectural distortion. No evidence of malignancy. Stable punctate calcifications RIGHT breast. IMPRESSION: MM/[place] [id number] BI-RADS: 2-Benign FOLLOW UP: 1 Year Follow-up Recommend return to annual screening mammography.
== END 2023-08-06 11:49 | disposition home or self-care (01) ==
LOC: RAD 11:50
PROVIDERS: PCP Family Medicine; Visit Provider Family Medicine
DX: Z12.31 Encounter for screening mammogram for malignant neoplasm of breast (principal)
CPT/HCPCS: 77063; 77067

== ENCOUNTER → 2023-11-18 18:11 | Outpatient (BNVA) | payer OTHER, SELFPAY | PROVIDERS: PCP Family Medicine; Visit Provider Nurse Practitioner Family | DX: R39.9 Unspecified symptoms and signs involving the genitourinary system (principal); N30.00 Acute cystitis without hematuria; J06.9 Acute upper respiratory infection, unspecified; N39.0 Urinary tract infection, site not specified | CPT/HCPCS: 81000; 87077; 87086; 87184 ==

== ENCOUNTER → 2023-12-22 13:19 | Outpatient (BNVA) | payer OTHER, SELFPAY | PROVIDERS: PCP Family Medicine; Visit Provider Family Medicine | DX: R39.9 Unspecified symptoms and signs involving the genitourinary system (principal); N39.0 Urinary tract infection, site not specified; B37.31 Acute candidiasis of vulva and vagina | CPT/HCPCS: 81000 ==

== ENCOUNTER → 2024-01-14 09:32 | Outpatient (BNVA) | payer OTHER, SELFPAY | PROVIDERS: PCP Family Medicine; Visit Provider Family Medicine | DX: N89.8 Other specified noninflammatory disorders of vagina (principal) | CPT/HCPCS: 87512; 87799 ==

== ENCOUNTER → 2024-01-25 10:39 | Outpatient (BNVA) | payer OTHER, SELFPAY | PROVIDERS: PCP Family Medicine; Visit Provider Family Medicine | DX: N89.8 Other specified noninflammatory disorders of vagina (principal) | CPT/HCPCS: 87070; 87205 ==

== ENCOUNTER → 2024-06-08 11:39 | Outpatient (BNVA) | payer OTHER, SELFPAY | PROVIDERS: PCP Family Medicine; Visit Provider Nurse Practitioner Women's Health | DX: R39.9 Unspecified symptoms and signs involving the genitourinary system (principal) | CPT/HCPCS: 84315; 87077; 87086; 87184 ==

== ENCOUNTER 2024-06-20 11:49 | Outpatient (CLI) | payer OTHER, SELFPAY ==
[2024-06-20 12:04] VITALS: BMI 35.0
--- NOTE | 2024-06-20 12:09 | ECG_ITS ---
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
[2024-06-20 12:38] VITALS: BP 112/84; PULSE 123
== END 2024-06-20 11:50 | disposition home or self-care (01) ==
PROVIDERS: PCP Family Medicine; Visit Provider Family Medicine
DX: R07.89 Other chest pain (principal); R06.02 Shortness of breath
CPT/HCPCS: 93017

== ENCOUNTER → 2024-07-13 15:05 | Outpatient (BNVA) | payer OTHER, SELFPAY | PROVIDERS: PCP Family Medicine; Visit Provider Family Medicine | DX: E11.9 Type 2 diabetes mellitus without complications (principal) | CPT/HCPCS: 80053; 80061; 83036; 85025 ==

== ENCOUNTER → 2024-07-18 08:27 | Outpatient (BNVA) | payer OTHER, SELFPAY | PROVIDERS: PCP Family Medicine; Visit Provider Nurse Practitioner Women's Health | DX: N39.0 Urinary tract infection, site not specified (principal) | CPT/HCPCS: 84315; 87086 ==

== ENCOUNTER → 2024-08-11 10:21 | Outpatient (BNVA) | payer OTHER, SELFPAY | PROVIDERS: PCP Family Medicine; Visit Provider Nurse Practitioner Women's Health | DX: Z12.4 Encounter for screening for malignant neoplasm of cervix (principal); R00.2 Palpitations; N30.20 Other chronic cystitis without hematuria | CPT/HCPCS: 81000; 84439; 84443; 87086; 87624 ==

== ENCOUNTER 2024-08-17 09:20 | Outpatient (CLI) | payer OTHER, SELFPAY ==
--- NOTE | 2024-08-17 09:22 | MM_ITS ---
WS: [id number] Bilateral screening 3D tomosynthesis digital mammogram, 08/17/2024 9:22 AM Clinical Data: SCREENING Comparison: 07/06/2023, 07/29/2022, 07/01/2021, 09/18/2019, 04/27/2018, 04/13/2016, 04/05/2015, 05/04/2013. Findings: No spiculated masses or clustered calcifications are seen. There are no secondary signs of carcinoma . MM/MM scr BI tomosynthesis [id number] Impression: Negative bilateral mammogram unchanged. Recommend annual screening mammograms. BIRADS: 1 - Negative. FOLLOW UP: 1 Year Follow-up DENSITY: The breasts are almost entirely fatty. The CAD sales store checker was used
== END 2024-08-17 09:21 | disposition home or self-care (01) ==
LOC: RAD 09:21
PROVIDERS: PCP Family Medicine; Visit Provider Family Medicine
DX: Z12.31 Encounter for screening mammogram for malignant neoplasm of breast (principal)
CPT/HCPCS: 77063; 77067

== ENCOUNTER → 2025-09-20 08:30 | Outpatient (BNVA) | payer OTHER, SELFPAY | PROVIDERS: PCP Family Medicine; Visit Provider Nurse Practitioner Women's Health | DX: N30.20 Other chronic cystitis without hematuria (principal); Z79.890 Hormone replacement therapy | CPT/HCPCS: 84270; 84402; 84403 ==

== ENCOUNTER 2025-09-21 08:19 | Outpatient (CLI) | payer OTHER, SELFPAY ==
--- NOTE | 2025-09-21 08:33 | FL_ITS ---
WS: [id number] Barium swallow and esophagram, 09/21/2025 Clinical Data: DYSPHAGIA Comparison: None. Fluoroscopy time: 1min [id number] # of spot films: 50 Findings: The patient swallowed the thick and thin barium, and it flowed through the hypopharynx without hesitation. No stricture, mass, polyp or erosion was seen. No aspiration or penetration occurred. The barium entered the esophagus and there was normal motility throughout. No hiatal hernia, reflux, stricture, polyp, mass, erosion or ulcer was noted. The barium passed normally into the stomach. FL/FL barium swallow [id number] Impression: Normal esophagram.
== END 2025-09-21 08:20 | disposition home or self-care (01) ==
LOC: RAD 08:21
PROVIDERS: PCP Family Medicine; Visit Provider Specialist
DX: R13.19 Other dysphagia (principal); R22.0 Localized swelling, mass and lump, head; M54.2 Cervicalgia
CPT/HCPCS: 74220

== ENCOUNTER → 2025-09-24 14:12 | Outpatient (BNVA) | payer OTHER, SELFPAY | PROVIDERS: PCP Family Medicine; Visit Provider Nurse Practitioner Women's Health | DX: N30.20 Other chronic cystitis without hematuria (principal); R30.0 Dysuria | CPT/HCPCS: 87086 ==

== ENCOUNTER 2025-10-01 14:43 | Outpatient (CLI) | payer OTHER, SELFPAY ==
--- NOTE | 2025-10-01 14:50 | CT_ITS ---
WS: [id number] CT NECK WITH CONTRAST HISTORY: DYSPHAGIA TECHNIQUE: Contiguous 2 mm axial images are performed through the neck with intravenous contrast. Sagittal and coronal reformats are also submitted. All CT scans at [facility] use at least one of these dose optimization techniques: automated exposure control; mA and/or kV adjustment per patient size (includes targeted exams where dose is matched to clinical indication); or iterative reconstruction. CONTRAST: CONTRAST: Omnipaque 350; 100 mL IV. DLP: 212.50 mGy.cm COMPARISON: None available. Nasopharynx, oropharynx, hypopharynx and larynx are unremarkable. No soft tissue masses or abnormal enhancement. Torus tubarius and fossa of Rosenmuller and parapharyngeal fat are normal. There are small but numerous lymph nodes along the cervical chains, greatest distribution at level 1 and level 2. These lymph nodes maintain normal fatty hilum. The largest lymph node is 10 mm on the RIGHT but there is a normal fatty hilum. No necrotic adenopathy. Tiny micronodules within the thyroid. Normal salivary glands. No osseous abnormalities. Visualized portions of the skull base demonstrate no abnormalities. Orbits and globes are within normal limits. No soft tissue masses. Visualized paranasal sinuses and mastoid air cells are normal. Lung apices are clear. CT/CT neck w con* [id number] IMPRESSION: 1. No oral pharyngeal or nasopharyngeal mass identified. 2. No mass of the tonsillar bed. 3. Small bilateral cervical chain lymph nodes. Fatty benson remain. No pathologi yaz enlarged lymph nodes. 4. Parapharyngeal fat on the RIGHT is normal. No abnormality along the eustach leslie tube.
[2025-10-01] MEDS: iohexol 350 mg/mL 500 mL Btl (per mL) IV (15:39)
== END 2025-10-01 14:44 | disposition home or self-care (01) ==
LOC: RAD 14:43
PROVIDERS: PCP Family Medicine; Visit Provider Specialist
DX: R13.10 Dysphagia, unspecified (principal)
CPT/HCPCS: 70491

== ENCOUNTER 2025-10-08 09:31 | Outpatient (CLI) | payer OTHER, SELFPAY ==
--- NOTE | 2025-10-08 09:37 | XR_ITS ---
WS: [id number] Exam: XR KUB [id number] Date/Time of Exam: 10/08/2025 9:42 AM Reason For Exam: R10.A1 - Flank pain, right side Comparison 08/21/2020. No bowel obstruction or pneumoperitoneum. Significant stool retention throughout the colon particularly the RIGHT colon. Status post cholecystectomy. No sign of organ enlargement. Bony structures are intact. There is probably medication in the stomach. XR/XR KUB [id number] IMPRESSION: 1. No acute abdominal process. Constipation.
== END 2025-10-08 09:32 | disposition home or self-care (01) ==
PROVIDERS: PCP Family Medicine; Visit Provider Nurse Practitioner Women's Health
DX: R10.A1 Flank pain, right side (principal); Z90.49 Acquired absence of other specified parts of digestive tract; K56.41 Fecal impaction
CPT/HCPCS: 74018; 80053

== ENCOUNTER 2025-10-26 08:11 | Outpatient (CLI) | payer OTHER, SELFPAY ==
--- NOTE | 2025-10-26 | MM_ITS ---
WS: [id number] BILATERAL 3D TOMOSYNTHESIS DIGITAL SCREENING MAMMOGRAPHY WITH CAD CLINICAL INFORMATION: ANNUAL SCREENING HISTORY: Screening mammogram. No current complaints. COMPARISON: 2023 TECHNIQUE: Bilateral CC and MLO views. FINDINGS: Scattered fibroglandular densities bilaterally. No suspicious focal mass, asymmetry, calcifications, or architectural distortion. No evidence of malignancy. Incidental punctate calcifications RIGHT breast MM/MM scr BI tomosynthesis [id number] IMPRESSION: DENSITY: There are scattered areas of fibroglandular density. BI-RADS: 2 - Benign. FOLLOW UP: 1 Year Follow-up Recommend return to annual screening mammography.
== END 2025-10-26 08:12 | disposition home or self-care (01) ==
LOC: RAD 08:11
PROVIDERS: PCP Family Medicine; Visit Provider Nurse Practitioner Women's Health
DX: Z12.31 Encounter for screening mammogram for malignant neoplasm of breast (principal); R92.323 Mammographic fibroglandular density, bilateral breasts; R92.1 Mammographic calcification found on diagnostic imaging of breast
CPT/HCPCS: 77063; 77067

== ENCOUNTER → 2025-11-21 10:51 | Outpatient (BNVA) | payer OTHER, SELFPAY | PROVIDERS: PCP Family Medicine; Visit Provider Nurse Practitioner Women's Health | DX: R68.82 Decreased libido (principal); R79.89 Other specified abnormal findings of blood chemistry | CPT/HCPCS: 82670; 84270 ==

== ENCOUNTER → 2025-11-28 11:02 | Outpatient (BNVA) | payer OTHER, SELFPAY | PROVIDERS: PCP Family Medicine; Visit Provider Nurse Practitioner | DX: R53.83 Other fatigue (principal); J02.8 Acute pharyngitis due to other specified organisms; B97.89 Other viral agents as the cause of diseases classified elsewhere; R50.9 Fever, unspecified | CPT/HCPCS: 81000; 87071; 87400; 87426; 87880 ==